=== PATIENT | male | born 1950 | race Caucasian/White ===

== ENCOUNTER → 2016-11-18 | Outpatient (CLI) | payer OTHER, MEDICARE ==
--- NOTE | 2016-11-18 08:11 | US ---
Ultrasound Abdomen Limited November 18, 2016 0720 hours Clinical Indication: Left lower quadrant and left groin pain. Technique: Grayscale and color imaging was performed from the umbilicus through the upper thigh on th e left side with and without provocative maneuvers evaluating for a ventral or inguinal hernia. Findings: The fascia appears intact in the left lower quadrant. The common femoral artery and the com mon femoral vein are unremarkable. A small lymph node is noted in the groin, normal in size and morph ology. There is no evidence of hernia. Impression: No evidence of hernia or fascial defect.
== END ==
LOC: FIMAGING 06:24
PROVIDERS: ATTEND Internal Medicine
DX: R10.32 Left lower quadrant pain (principal)

== ENCOUNTER → 2016-12-28 | Outpatient (CLI) | payer OTHER, MEDICARE ==
[~2016-12-28] MED LIST: IOPAMIDOL (ISOVUE-300) 100 ML BTL IV ONE
== END ==
LOC: FIMAGING 14:30
PROVIDERS: ATTEND Internal Medicine
DX: I70.0 Atherosclerosis of aorta (principal); M51.36 Other intervertebral disc degeneration, lumbar region
CPT/HCPCS: 74177; Q9967

== ENCOUNTER 2019-01-18 02:46 | Emergency (ER) | payer OTHER, MEDICARE ==
[2019-01-18] MEDS ORDERED: ASPIRIN 81 MG CHEWABLE TAB ONE (03:01)
[2019-01-18] MEDS ORDERED: ASPIRIN 81 MG CHEWABLE TAB PO ONE (03:02)
[2019-01-18] MEDS ORDERED: NITROGLYCERIN 0.4 MG BTL SL ONE (03:09)
--- NOTE | 2019-01-18 03:13 | EDPHY ---
H & P Stated Complaint: chest pressure 5 day Time Seen by Provider: 01/18/19 03:02 HPI/ROS: Chief Complaint: Chest pressure HPI: Healthy 68-year-old male with a history of hyperlipidemia is presenting with 5 days of intermittent chest discomfort. Describes a central pressure. No shortness of breath. Pain does not radiate. At worst is a 5/10. It was worse this morning when it woke him up. Does have a history of similar about 10 years ago and had a catheterization showing a 10% blockage. He is very active and athletic in exercises daily. Does not get chest pain on exertion. Some mild congestion. No fevers or chills. No cough. No leg pain or swelling. No recent travel or periods of immobility. ROS: 10 systems were reviewed and were negative except those elements noted in the HPI. PMH: Hyperlipidemia Social History: No smoking, occasional alcohol, no recreational drug use Family History: non-contributory Physical Exam: Gen: Awake, Alert, No Distress HEENT: Nose: no rhinorrhea Eyes: PERRLA, EOMI Mouth: Moist mucosa Neck: Supple, no JVD Chest: nontender, lungs clear to auscultation Heart: S1, S2 normal, no murmur Abd: Soft, non-tender, no guarding Back: no CVA tenderness, no midline tenderness Ext: no edema, non-tender Skin: no rash Neuro: CN II-XII intact, Sensation grossly intact, Strength 5/5 in bilateral upper and lower extremities - Personal History Current Tetanus/Diphtheria Vaccine: Yes Current Tetanus Diphtheria and Acellular Pertussis (TDAP): Yes Tetanus Vaccine Date: 10/2011 - Medical/Surgical History Hx Asthma: No Hx Chronic Respiratory Disease: No Hx Diabetes: No Hx Cardiac Disease: Yes Hx Renal Disease: No Hx Cirrhosis: No Hx Alcoholism: No Hx HIV/AIDS: No Hx Splenectomy or Spleen Trauma: No Other PMH: Hyperlipidemia, back surg, sciatica, high calcium - Social History Smoking Status: Former smoker Constitutional: Initial Vital Signs Temperature (C) 36.6 C 01/18/19 03:00 Heart Rate 57 L 01/18/19 03:00 Respiratory Rate 18 01/18/19 03:00 Blood Pressure 112/82 H 01/18/19 03:00 O2 Sat (%) 96 01/18/19 03:00 O2 Delivery Mode Room Air Allergies/Adverse Reactions: EYE DROP Allergy (Unknown, Uncoded 02/07/16 09:06) Unknown Home Medications: Medication Instructions Recorded Aspirin 81mg (OTC) 02/07/16 Atorvastatin Calcium 02/07/16 predniSONE [prednisone 10mg (RX)] 40 mg PO DAILY 3 Days tab 02/07/16 Medical Decision Making - Diagnostics EKG Interpretation: ECG time 2:55 a.m., sinus rhythm with a rate of 59, normal axis, normal intervals, no acute ST or T-wave changes. Impression: Normal ECG. Imaging Results: Chest x-ray is negative per my interpretation. ED Course/Re-evaluation: 5-year-old male with substernal chest pressure. Initial EKG and troponin are unremarkable. Will repeat serial troponin. If negative plan for follow-up as an outpatient. Patient is pain-free now. 0615 repeat troponin is 0. Patient is symptom-free. Will discharge with follow -up with his events associate, return for any concerns. I have reviewed the results of the initial diagnostic testing and the risk factors with the patient, including the results of the troponin and the ECG. We have also discussed the results of the repeat troponin. The patient understands that since these are negative, the risk of having a heart attack or heart complication within the next 30 days is 1%, or 1/100. We discussed the patient's personal risk level evaluation and we discussed the importance of follow-up. If their symptoms are to worsen or if they are unable to get follow- up with one-week the patient will return to the emergency department. The decision to be discharged for outpatient follow-up was made by a shared decision making process between myself and the patient. - Data Points Laboratory Results: Laboratory Results 01/18/19 03:00 01/18/19 03:00 01/18/19 01/18/19 01/18/19 03:07 03:00 03:00 WBC 4.47 10^3/uL 10^3/uL (3.80-9.50) RBC 4.79 10^6/uL 10^6/uL (4.40-6.38) Hgb 15.2 g/dL g/dL (13.7-17.5) Hct 44.4 % % (40.0-51.0) MCV 92.7 fL fL (81.5-99.8) MCH 31.7 pg pg (27.9-34.1) MCHC 34.2 g/dL g/dL (32.4-36.7) RDW 12.0 % % (11.5-15.2) Plt Count 180 10^3/uL 10^3/uL (150-400) MPV 10.1 fL fL (8.7-11.7) Neut % (Auto) 47.6 % % (39.3-74.2) Lymph % (Auto) 37.4 % % (15.0-45.0) [place] % (Auto) 12.3 % % (4.5-13.0) Eos % (Auto) 1.8 % % (0.6-7.6) Baso % (Auto) 0.9 % % (0.3-1.7) Nucleat RBC Rel Count 0.0 % % (0.0-0.2) Absolute Neuts (auto) 2.13 10^3/uL 10^3/uL (1.70-6.50) Absolute Lymphs (auto) 1.67 10^3/uL 10^3/uL (1.00-3.00) Absolute Monos (auto) 0.55 10^3/uL 10^3/uL (0.30-0.80) Absolute Eos (auto) 0.08 10^3/uL 10^3/uL (0.03-0.40) Absolute Basos (auto) 0.04 10^3/uL 10^3/uL (0.02-0.10) Absolute Nucleated RBC 0.00 10^3/uL 10^3/uL (0-0.01) Immature Gran % 0.0 % % (0.0-1.1) Immature Gran # 0.00 10^3/uL 10^3/uL (0.00-0.10) Sodium 140 mEq/L mEq/L (135-145) Potassium 4.0 mEq/L mEq/L (3.5-5.2) Chloride 107 mEq/L mEq/L (97-110) Carbon Dioxide 27 mEq/l mEq/l (22-31) Anion Gap 6 mEq/L mEq/L (6-14) BUN 28 mg/dL H mg/dL (7-23) Creatinine 1.0 mg/dL mg/dL (0.7-1.3) Estimated GFR > 60 Glucose 94 mg/dL mg/dL (70-100) Calcium 9.0 mg/dL mg/dL (8.5-10.4) POC Troponin I 0.00 ng/mL ng/mL (0.00-0.08) Medications Given: Discontinued Medications Aspirin (Aspirin) 324 mg PO EDNOW ONE Stop: 01/18/19 03:03 Last Admin: 01/18/19 03:03 Dose: 324 mg Sodium Chloride (Ns) 1,000 mls @ 0 mls/hr IV ONCE ONE PRN Reason: Wide Open Stop: 01/18/19 04:26 Last Admin: 01/18/19 04:54 Dose: 1,000 mls Nitroglycerin (Nitrostat) 0.4 mg SL EDNOW ONE Stop: 01/18/19 03:10 Last Admin: 01/18/19 03:13 Dose: 0.4 mg Point of Care Test Results: Chemistry 01/18/19 03:07 POC Troponin I 0.00 ng/mL ng/mL (0.00-0.08) Departure - Departure Disposition: Home, Routine, Self-Care Clinical Impression: Chest pain Condition: Good Instructions: Chest Pain (ED) Additional Instructions: Follow up with her events associate, Dr. Strong, in 2-3 days for further evaluation. Return to the emergency department for increasing chest pain, shortness of breath, fainting, fevers, chills, or any other concerns. Referrals: Zak Zuelta MD [Primary Care Provider] - As per Instructions King Strong MD [Medical Doctor] - As per Instructions
[2019-01-18 03:17] LABS: PLATELET COUNT 180 10^3/uL (150-400)
[2019-01-18] MEDS ORDERED: NS 1,000 ML IV ONE (04:25)
[2019-01-18 06:24] VITALS: BP 86/56
--- NOTE | 2019-01-23 14:59 | CPEKG ---
Test Reason : OPEN Blood Pressure : / mmHG Vent. Rate : 059 BPM Atrial Rate : 059 BPM P-R Int : 182 ms QRS Dur : 106 ms QT Int : 439 ms P-R-T Axes : 049 041 026 degrees QTc Int : 435 ms Sinus rhythm Confirmed by Jose L Santiago [id number] on 01/23/2019 2:59:04 PM Referred By: Jose L Santiago Confirmed By:Jose L Santiago
== END 2019-01-18 06:21 | disposition home or self-care (01) ==
DX: R07.9 Chest pain, unspecified (principal); J40 Bronchitis, not specified as acute or chronic; E78.5 Hyperlipidemia, unspecified; Z87.891 Personal history of nicotine dependence
CPT/HCPCS: 84484-ER

== ENCOUNTER → 2019-01-29 | Outpatient (CLI) | payer OTHER, MEDICARE | LOC: BHFA 14:00 | PROVIDERS: ATTEND Internal Medicine Cardiovascular Disease | DX: R07.9 Chest pain, unspecified (principal); I25.10 Atherosclerotic heart disease of native coronary artery without angina pectoris | CPT/HCPCS: 78452; 93017; A9500 ==